=== PATIENT | female | born 1940 | race Two or more races ===

== ENCOUNTER 2018-11-22 07:29 | Day surgery (SDC) | payer MEDICARE, MEDICAID ==
--- NOTE | 2018-11-19 12:03 | Opthalmology H&P ---
Ophthalmology H&P H&P Chief Complaint: decreased vision in right eye HPI Vision Affects Ability to: read, manage personal affairs Past Ocular History: retinal problems - Dry AMD OU,ERM ou,Retinal Nevus OS, HPI Narrative blurry vision Exam Visual Acuity: OD 20/100 OS 20/100 Tension: OD 10 OS 10 Eye Exam: normal OU: external exam, palpebral fissure-width, marginal reflex distance, levator function, corneas, anterior chambers, fundus exam; findings: lens - NS Cataracts OU Assessment/Plan Treatment Plan: cataract extraction w/ lens implant Goals of Treatment: improvement of vision, enhance quality of life Attestation Attestation The risks and benefits of the surgery as well as alternative procedures were explained to the patient in detail. Abad Mcclellan MD Nov 19, 2018 12:03
--- NOTE | 2018-11-19 12:04 | Pre-Procedure Note/Attestation ---
Pre-Procedure Note/Attestation Complete Prior to Procedure Planned Procedure: right Procedure Narrative: Cataract extraction with intraocular lens implant right eye Indications for Procedure Pre-Operative Diagnosis: Nuclear sclerotic cataract right eye Attestation I attest that I discussed the nature of the procedure; its benefits; risks and complications; and alternatives (and the risks and benefits of such alternatives ), prior to the procedure, with the patient (or the patient's legal customer engagement representative). I attest that, if there was a reasonable possibility of needing a blood transfusion, the patient (or the patient's legal customer engagement representative) was given the [facility] standardized written summary, pursuant to the [place] Blood Safety Act ([place] Health and Safety Code # 1645, as amended). I attest that I re-evaluated the patient just prior to the surgery and that there has been no change in the patient's H&P, except as documented below: Abad Mcclellan MD Nov 19, 2018 12:04
[2018-11-22] VITALS (9 sets, daily range): BP systolic 131–160; BP diastolic 53–104
[~2018-11-22] VITALS: Ht 160 cm; Wt 67.6 kg
[~2018-11-22 07:29] MED LIST: Akten 3.5% 1ml Btl RIGHT EYE ONE; Diclofenac Sod 0.1% Op Soln RIGHT EYE SCH; Proparacaine 0.5% Opth Soln 15ml RIGHT EYE ONE; Tetracaine 0.5% Opth 4ml Soln RIGHT EYE ONE
[2018-11-22] MEDS: Cyclopentolate 1% Opth Sol 2ml RIGHT EYE SCH ×3 (09:46→10:11)
[2018-11-22] MEDS: Tropicamide 1% Opth 15ml Soln RIGHT EYE SCH ×3 (09:46→10:11)
[2018-11-22] MEDS: Phenylephrine 10% Opth Soln 5ml RIGHT EYE SCH ×3 (09:47→10:11)
[2018-11-22] MEDS: Tobramycin Op Soln 0.3% 5ml RIGHT EYE SCH ×3 (09:47→10:11)
[2018-11-22] MEDS ORDERED: LOVASTATIN40 MG ORAL (10:10)
[2018-11-22] MEDS ORDERED: LOSARTAN POTASS50 MG ORAL (10:10)
[2018-11-22] MEDS ORDERED: METFORMIN HCL1000 M1 ORAL (10:10)
[2018-11-22] MEDS ORDERED: TRADJENTA5 MG PO (10:10)
[2018-11-22] MEDS ORDERED: LR 1000ml 1,000 ML IVLG SCH (12:20)
--- NOTE | 2018-11-22 12:20 | Anethesia Preoperative Eval ---
Anesthesia Pre-op PMH/ROS General Date of Evaluation: Nov 22, 2018 Anesthesiologist: Sushant ASA Score: ASA 2 Mallampati Score Class I : Soft palate, uvula, fauces, pillars visible Class II: Soft palate, uvula, fauces visible Class III: Soft palate, base of uvula visible Class IV: Only hard plate visible Mallampati Classification: Class II Surgeon: Vy Anesthesia History: none Family History: no anesthesia problems Allergies: Coded Allergies: PENICILLINS (Verified Allergy, Unknown, 11/18/18) Medications: see eMAR Patient NPO?: Yes NPO Date: Nov 21, 2018 NPO Time: 22:00 Past Medical History Cardiovascular: Reports: HTN, other - HLD; Denies: CAD, RI, valve dz, arrhythmia Pulmonary: Denies: asthma, COPD, ALLISON, other Gastrointestinal/Genitourinary: Denies: GERD, CRI, ESRD, other Neurologic/Psychiatric: Denies: dementia, CVA, depression/anxiety, TIA, other Endocrine: Reports: DM; Denies: hypothyroidism, steroids, other HEENT: Denies: cataract (L), cataract (R), glaucoma, YAVAPAI-APACHE (L), YAVAPAI-APACHE (R), other Hematology/Immune: Denies: anemia, DVT, bleeding disorder, other Musculoskeletal/Integumentary: Reports: OA; Denies: RA, DJD, DDD, edema, other PSxH Narrative: lap caroline Anesthesia Pre-op Phys. Exam Physician Exam Last Vital Signs Date Time Temp Pulse Resp B/P (MAP) Pulse Ox O2 Delivery O2 Flow Rate FiO2 11/22/18 10:04 Room Air 11/22/18 09:50 97.5 73 18 131/53 95 Constitutional: NAD Cardiovascular: RRR Respiratory: CTA Airway Exam Mallampati Score: Class II MO: limited ROM: limited Anesthesia Pre-op A/P Labs see chart Studies Pre-op Studies: EKG - sr Risk Assessment & Plan Assessment: ASA II Plan: MAC Status Change Before Surgery: No Pre-Antibiotics Drug: Sary Vargas MD Nov 22, 2018 12:20
[2018-11-22] MEDS ORDERED: Pred Forte 1% Opth Susp 1ml ONE (12:30)
[2018-11-22] MEDS ORDERED: DiphenhydrAMINE 50mg/ml Inj IVP PRN (12:30)
[2018-11-22] MEDS ORDERED: Pilocarpine 1% Opth 15ml Soln ONE (12:30)
[2018-11-22] MEDS ORDERED: Dexamethasone 4mg/ml vial ONE (12:30)
[2018-11-22] MEDS ORDERED: LR 1000ml ONE (12:30)
--- NOTE | 2018-11-22 12:32 | Immediate Post-Op Evaluation ---
Immediate Post-Op Evalulation Immediate Post-Op Evalulation Procedure: left cataract extraction with IOL Date of Evaluation: Nov 22, 2018 Time of Evaluation: 12:34 IV Fluids: 200 Blood Products: 0 Estimated Blood Loss: 0 Urinary Output: 0 Blood Pressure Systolic: 170 Blood Pressure Diastolic: 95 Pulse Rate: 60 Respiratory Rate: 16 O2 Sat by Pulse Oximetry: 100 Temperature (Fahrenheit): 97.7 Pain Score (1-10): 0 Nausea: No Vomiting: No Complications 0 Patient Status: awake, reacts, patent, none Hydration Status: adequate Drug: N/A Sary Hernandez MD Nov 22, 2018 12:32
--- NOTE | 2018-11-22 12:32 | 48 Hour Post Anesthesia Eval ---
Post Anesthesia Evaluation Procedure: left cataract extraction with IOL Date of Evaluation: Nov 22, 2018 Airway: patent Nausea: No Vomiting: No Pain Intensity: 0 Hydration Status: adequate Cardiopulmonary Status: at baseline Mental Status/LOC: patient returned to baseline Post-Anesthesia Complications: 0 Follow-up care needed: ready to discharge Sary Hernandez MD Nov 22, 2018 12:32
[2018-11-22] MEDS ORDERED: Lidocaine 1% MPF 10mg/ml 5ml ONE (12:46)
[2018-11-22] MEDS ORDERED: fentaNYL 100 mcg/2 mL ONE (12:46)
[2018-11-22] MEDS ORDERED: EPINEPHrine 1mg/1ml Amp ONE (13:43)
[2018-11-22] MEDS ORDERED: Polysporin Opth Oint 3.5gm ONE (13:43)
[2018-11-22] MEDS ORDERED: BSS 15ml BTL ONE (13:44)
[2018-11-22] MEDS ORDERED: Sodium Hyaluronate 14 mg/ml 0.85ml ONE (13:44)
[2018-11-22] MEDS ORDERED: Povidone-Iodine 5% opth solution ONE (13:44)
[2018-11-22] MEDS ORDERED: BSS 500ml btl ONE (13:44)
[2018-11-22] MEDS ORDERED: acetaZOLAMIDE 500mg Inj ONE (14:31)
--- NOTE | 2018-11-23 14:36 | Brief Operative Note ---
Immediate Post Operative Note Operative Note Chief Complaint: Blurry vision Pre-op Diagnosis: Nuclear sclerotic cataract right eye Procedure: Cataract extraction with IOL implant right eye Post-op Diagnosis: Pseudo OD Findings: consistent w/pre-op dx studies Surgeon: Abad Mcclellan MD Anesthesiologist: Sary Horne MD Anesthesia: MAC Specimen: none Complications: none Condition: stable Fluids: LR Estimated Blood Loss: none Drains: none Implant(s) used?: Yes - IOL OD Abad Mcclellan MD Nov 23, 2018 14:36
--- NOTE | 2018-11-23 14:39 | Operative Note - PDOC ---
Operative Note Operative Note Date of Operation/Procedure: Nov 22, 2018 Chief Complaint: Blurry vision Pre-op Diagnosis: Nuclear sclerotic cataract right eye Procedure: Cataract extraction with IOL implant right eye Post-op Diagnosis: Pseudo OD Operative Findings: consistent w/pre-op dx studies Surgeon: Abad Mcclellan MD Anesthesiologist: Sary Horne MD Anesthesia: MAC Specimen: none Complications: none Condition: stable Fluids: LR Estimated Blood Loss: none Drains: none Implant(s) used?: Yes - IOL OD Indications for Procedure Nuclear sclerotic cataract right eye Description of Procedure This patient has been complaining visually significant cataract in the right eye with the best corrected visual acuity of 20/80 under moderate glare conditions worse. The patient complains of difficulties with glare in performing activities of daily living and wants to manage personal affairs with comfort and accuracy and see well enough to move with safety at home and outdoors. The risks, benefits and alternatives of the procedure were discussed with the patient in the office prior to scheduling surgery. All questions from the patient were answered after the surgical procedure was explained in detail. The risks of the procedure as explained to the patient include, but are not limited to, pain, infection, bleeding, loss of vision, retinal detachment, need for further surgery, loss of lens nucleus, double vision, etc. Alternative procedures were discussed which include, to do nothing or seek a second opinion. Informed consent for this procedure was obtained from the patient. The patient was referred to a primary care physician for a cardiopulmonary clearance prior to surgery, after proper evaluation was done patient was properly scheduled for outpatient surgery. The patient was brought to the operating room where the anesthesiologist established I.V. lines and cardiac monitoring leads. Mild intravenous sedation was administered. The patient was then prepared with a 5% solution of povidone -iodine to the conjunctival fornix and lashes, and a 5% solution of povidone- iodine to the lids and periorbital skin. The patient was then draped in the usual sterile fashion. A lid speculum was then placed in the operative eye. A keratome blade was then used to create a biplanar incision into the anterior chamber. Viscoelastics was then instilled into the anterior chamber. A capsulorrhexis was then fashioned with an utrata forceps followed by hydrodissection and hydro delineation of the lens nucleus. Paracentesis incision was made at 3 o'clock with sharp blade. The phacoemulsification unit, after being properly adjusted and tested, was then used to emulsify the nucleus followed by aspiration and irrigation of residual cortical material. Healon was then instilled into the anterior chamber. The corneal wound was then enlarged to the size of the optic with the jessica keratome blade. The intraocular lens was then inspected for right power and size and thought to be satisfactory. Then the lens was gently placed in the capsular bag. Positioning within the capsular bag was confirmed by direct visualization. Optic centration was accomplished with a Sinskey hook. Viscoelastics was removed from the anterior chamber using the irrigation and aspiration unit. The corneal wound was then tested for leaks and none were found. The lid speculum were then removed. Sponge and needle counts were correct. An eye patch and shield were placed over the operative eye. The patient was taken to the recovery room in stable condition. There were no complications. The patient tolerated the procedure well. The patient was then transferred to the ambulatory surgery unit in stable and satisfactory condition , was given detailed written instructions and asked to follow up in the office the next day. Abad Mcclellan MD Nov 23, 2018 14:39
== END 2018-11-22 14:40 | disposition home or self-care (01) ==
LOC: SUR 07:29
DX: H25.11 Age-related nuclear cataract, right eye (principal); E11.9 Type 2 diabetes mellitus without complications; I10 Essential (primary) hypertension; E78.5 Hyperlipidemia, unspecified; M19.90 Unspecified osteoarthritis, unspecified site; Z90.49 Acquired absence of other specified parts of digestive tract; Z88.0 Allergy status to penicillin
CPT/HCPCS: 66984; 82962; J0171; J1100; J3010; J3370; V2632; 94003; 94150